=== PATIENT | male | born 1980 | race African-American/Black ===

== ENCOUNTER → 2020-06-21 | Outpatient (CLI) | payer BC ==
--- NOTE | 2020-06-21 10:51 | XR ---
EXAMINATION TYPE: XR knee limited LT DATE OF EXAM: 06/21/2020 COMPARISON: NONE HISTORY: 40-year-old male right knee pain TECHNIQUE: 3 views FINDINGS: No knee joint effusion. Mild anterior soft tissue swelling. Extensor mechanism is intact. No acute fr acture, subluxation, or dislocation seen. Some vacuum within the medial compartment secondary to dist raction at the joint. IMPRESSION: Mild anterior soft tissue swelling. No acute osseous abnormality seen.
== END | disposition home or self-care (01) ==
LOC: RADXRMAIN 09:24
PROVIDERS: ATTEND Family Medicine
DX: M79.89 Other specified soft tissue disorders (principal)

== ENCOUNTER → 2022-09-03 | Outpatient (CLI) | payer BC ==
--- NOTE | 2022-09-03 16:19 | CT ---
EXAMINATION TYPE: CT chest wo con DATE OF EXAM: 09/03/2022 COMPARISON: Chest x-ray August 22, 2022 HISTORY: DYSPNEA CT DLP: 1947.7 mGycm. Automated Exposure Control for Dose Reduction was Utilized. TECHNIQUE: CT scan of the thorax is performed without IV contrast. High resolution protocol with 1 m m sequences obtained at 10 mm intervals in supine and prone technique at full inspiration and expirat ion. FINDINGS: LUNGS: An azygos lobe/fissure is redemonstrated. There is [id number] linear scarring and/or ate lectasis in the lower lungs left greater than right. No significant peripheral reticulation or fibrot ic change. No bronchiectasis. No honeycombing. Is no pleural effusion or pneumothorax seen bilaterall y. No suspicious consolidation or focal masses. MEDIASTINUM: Lack of IV contrast and technique are noted to limit evaluation for mediastinal and ginger cially hilar adenopathy. There are no definitive greater than 1 cm mediastinal lymph nodes. Cardiomeg steffi is seen. No pericardial effusion is noted. Enlarged main pulmonary artery of 3.4 cm axial image 1 3 raises concern for underlying pulmonary hypertension. Ascending aortic aneurysm measuring at least 4.5 cm is felt present. OTHER: Prominent but subcentimeter right axillary lymph node. IMPRESSION: Mild to moderate linear scarring and/or atelectasis in the lung bases left greater than r ight. No significant peripheral fibrotic change. There is cardiomegaly with suggestion of ascending a ortic aneurysm. Advise cardiac echo and/or CTA chest follow-up to further evaluate both findings.
== END | disposition home or self-care (01) ==
LOC: RADCTMAIN 15:03
PROVIDERS: ATTEND Internal Medicine
DX: I51.7 Cardiomegaly (principal); R06.09 Other forms of dyspnea
CPT/HCPCS: 71250

== ENCOUNTER → 2023-02-27 | Outpatient (CLI) | payer BC ==
[2023-02-27 08:26] LABS: African American GFR (CKD) >90 (>60 ml/min/1.73 sqM); Blood Urea Nitrogen 24 mg/dL (9-20); Non-African American GFR(CKD) 81 (>60 ml/min/1.73 sqM)
--- NOTE | 2023-02-27 12:53 | CT ---
EXAMINATION TYPE: CT angio chest DATE OF EXAM: 02/27/2023 COMPARISON: 09/03/2022 HISTORY: THORACIC AORTIC ANEURYSM, WITHOUT rupture CT DLP: 3743.2 mGycm CONTRAST: CTA thoracic aorta with 3-D reconstruction is performed and with IV Contrast, patient injected with 2 00 mL of Isovue 370. Contrast CTA of the thoracic aorta was performed from the lung apex through the upper abdomen. 3D re construction imaging obtained at a separate workstation. CT Chest: THORACIC AORTA: The aortic root is dilated at 4.9 cm AP dimension. Ascending thoracic aorta is aneury smal at 4.5 cm AP dimension. The aortic arch and descending thoracic aorta are of normal caliber. The main pulmonary artery is dilated at 3.7 cm. Mild atheromatous changes seen. There is no evidence fo r dissection or periaortic collection. LUNGS: The lungs are clear and free of infiltrate or atelectasis. No pulmonary nodule or mass is det ected. No pleural effusion or CT evidence of interstitial lung disease. MEDIASTINUM: No evidence for mediastinal hematoma. The heart is not enlarged. No evidence for med iastinal mass or adenopathy. HILAR STRUCTURES: No evidence for mass. No hilar adenopathy is appreciated. OTHER: No significant abnormality. IMPRESSION- 1 aneurysm of the aortic root and ascending thoracic aorta is noted. 2. Correlate for pulmonary arterial hypertension.
== END | disposition home or self-care (01) ==
LOC: RADCTMAIN 07:53
PROVIDERS: ATTEND Internal Medicine
DX: I71.21 Aneurysm of the ascending aorta, without rupture (principal); Q25.43 Congenital aneurysm of aorta
CPT/HCPCS: 82565; 84520; 71275; 36415; Q9967

== ENCOUNTER → 2024-12-05 | Outpatient (CLI) | payer BC ==
--- NOTE | 2024-12-09 12:13 | MR ---
EXAMINATION TYPE: MR knee LT wo con DATE OF EXAM: 12/05/2024 3:28 PM COMPARISON: 06/21/2020 . CLINICAL INDICATION: Male, 44 years old with history of S83.242A OTH TEAR OF MEDIAL MENISCUS, CURRENT INJU; PHH, Left knee pain, no known injury TECHNIQUE: Multi planar, multi sequence imaging was performed of the knee including: Triplane proton density fat-saturated images and T1-weighted imaging. No Gadolinium was given. IV Contrast: mL (none if empty) FINDINGS: Medial meniscus: Intact Medial femorotibial cartilage: Intact Medial collateral ligament: Intact Lateral meniscus: Intact Lateral femorotibial cartilage: Intact Lateral collateral ligament complex: Intact There is a intra-articular lobule of fat which is edematous near the lateral meniscus anterior root s eries 701 image 20 and 6 on image 14. Patellofemoral alignment: Normal Patellofemoral cartilage: Intact Extensor mechanism: Intact. Joint/bursal fluid: Large joint effusion most pronounced in the suprapatellar space. Muscles/tendons: The patellar tendon, quadriceps tendon, IT band, pes anserinus tendons, semimembrano fran tendon, popliteus tendon, and biceps femoris tendon are all within normal limits. Bone marrow: Intraosseous ganglion cyst near the PCL origin on the femur. Anterior cruciate ligament: Intact. Posterior cruciate ligament: Intact. Soft tissues: Mild subcutaneous edema along the anterior prepatellar fat. IMPRESSION: Limited exam due to motion. 1. There is a intra-articular lobule of fat which is edematous near the lateral meniscus anterior ro ot suggestive of fatty impingement. 2. Large joint effusion present. 3. The ACL and PCL appear intact. 4. The menisci are intact. 5. Lateral and medial collateral ligaments are intact. [facility], , 12/09/2024 12:10 PM
== END | disposition home or self-care (01) ==
LOC: RADMRIMAIN 14:32
PROVIDERS: ATTEND Orthopaedic Surgery
DX: S83.242A Other tear of medial meniscus, current injury, left knee, initial encounter (principal); M25.462 Effusion, left knee; R60.9 Edema, unspecified; X58.XXXA Exposure to other specified factors, initial encounter